=== PATIENT | male | born 1995 | race Caucasian/White ===

== ENCOUNTER 2017-10-07 17:42 | Emergency (ER) | payer BC, OTHER ==
[2017-10-07 17:50] VITALS: BP 153/91; PULSE 95; TEMP 98; BMI 30.5
--- NOTE | 2017-10-07 18:18 | PDOC ---
History of Present Illness - General Chief Complaint: Allergic Reaction Stated Complaint: ALLERGIC REACTION Time Seen by Provider: 10/07/17 18:04 History Source: Patient Exam Limitations: No Limitations - History of Present Illness Initial Comments: 10/07/17 18:24 22-year-old male with history of autism presents to the ED with allergic reactions related to lentil ingestion. As per mother she forgot that patient had had lentils in childhood and developed a pruritic rash and today after having 2 spoonfuls of lentils he started to itch at his right ear insanity as if he was clearing his throat. Mother immediately realized it was an allergic reaction and gave him 25 mg of Benadryl capsule which he chewed and swallowed. Patient symptoms have subsided but mother decided bring patient to the ER for further evaluation. Patient denies difficulty swallowing, difficulty breathing, or itchy throat Timing/Duration: 1 hour Severity: mild Associated Symptoms: reports: denies symptoms Past History - Travel Traveled outside of the country in the last 30 days: No - Past Medical History Allergies/Adverse Reactions: Allergies Allergy/AdvReac Type Severity Reaction Status Date / Time lentils Allergy Verified 10/07/17 17:45 Home Medications: Ambulatory Orders Diphenhydramine [Benadryl Oral Solution -] 25 mg PO Q8H PRN #90 ml 10/07/17 Prednisolone Oral Solution [Orapred (15 mg/5 ml) Oral Solution -] 40 mg PO ONCE #15 ml 10/07/17 COPD: No Other medical history: AUTISM - Suicide/Smoking/Psychosocial Hx Smoking History: Never smoked Information on smoking cessation initiated: No Hx Alcohol Use: No Drug/Substance Use Hx: No Substance Use Type: None Patient Lives Alone: No Lives with/in: parents Review of Systems - Review of Systems Able to Perform ROS?: Yes Constitutional: No: Symptoms Reported HEENTM: No: Symptoms Reported Integumentary: No: Symptoms Reported *Physical Exam - Vital Signs Last Vital Signs Temp Pulse Resp BP Pulse Ox 98.0 F 95 H 18 153/91 100 10/07/17 17:46 10/07/17 17:46 10/07/17 17:46 10/07/17 17:46 10/07/17 17:46 - Physical Exam General Appearance: Yes: Nourished, Appropriately Dressed. No: Apparent Distress HEENT: positive: TMs Normal, Pharynx Normal Neck: negative: Stridor Respiratory/Chest: positive: Lungs Clear, Normal Breath Sounds. negative: Respiratory Distress, Accessory Muscle Use Cardiovascular: positive: Regular Rhythm, Regular Rate. negative: Murmur Gastrointestinal/Abdominal: positive: Soft. negative: Tenderness Integumentary: positive: Normal Color, Warm, Moist. 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 Mother gave Benadryl prior to arrival. Patient here given a dose of prednisone and will be discharged home with a second dose for tomorrow along with a when necessary dose of liquid Benadryl. *DC/Admit/Observation/Transfer Diagnosis at time of Disposition: Food allergy - Discharge Dispostion Disposition: HOME - Referrals - Patient Instructions Printed Discharge Instructions: DI for General Allergic Reactions Additional Instructions: Please give Benadryl as needed every 8 hours for itching or rash. Please give prednisone tomorrow. If symptoms continue or worsen please go to the nearest ER. Otherwise follow up with the primary care physician. - Post Discharge Activity
[2017-10-07] MEDS ORDERED: prednisoLONE SODIUM PHOSPHATE 15 MG/5 ML ORAL SOLN BOTTLE PO ONE (18:19)
[2017-10-07] MEDS ORDERED: prednisoLONE SODIUM PHOSPHATE 15 MG/5 ML ORAL SOLN BOTTLE ONE (18:22)
== END 2017-10-07 18:35 | disposition home or self-care (01) ==
LOC: JERFT 17:42
DX: T78.1XXA Other adverse food reactions, not elsewhere classified, initial encounter (principal); R21 Rash and other nonspecific skin eruption; X58.XXXA Exposure to other specified factors, initial encounter; F84.0 Autistic disorder
CPT/HCPCS: 99281-25

== ENCOUNTER 2022-07-03 21:28 | Emergency (ER) | payer BC, OTHER ==
[2022-07-03 21:42] VITALS: BP 157/87; PULSE 102; RESP 18; TEMP 98.2; BMI 33.9
[2022-07-04 03:18] LABS: CALCIUM 9.2 mg/dL (8.5-10.1)
[2022-07-04 03:19] LABS: ALBUMIN 4.1 g/dl (3.4-5.0); BLOOD UREA NITROGEN 10.8 mg/dL (7-18)
[2022-07-04 03:22] LABS: CREATININE 0.9 mg/dL (0.55-1.3)
[2022-07-04 03:24] LABS: BILIRUBIN,TOTAL 0.5 mg/dL (0.2-1)
== END 2022-07-04 03:02 | disposition home or self-care (01) ==
LOC: JERFT 21:28 → JER 21:28
DX: R21 Rash and other nonspecific skin eruption (principal)
CPT/HCPCS: 36415; 80053; 84703; 86780; 87491; 87529; 87591; 87593; 87661; 99283-25